=== PATIENT | female | born 1955 | race Caucasian/White ===

== ENCOUNTER → 2016-08-11 | Outpatient (CLI) | payer BC ==
[~2016-08-11] MED LIST: ALEVE 220MG220 MG PO; AMOXICILLIN/CLA1 TA1; ASPI81TA; DOXYCYCLINE MO100 MG PO; FE 50160 MG PO; MEDROL 4MG DOSPA4 MG PO; MOTRIN 600600 MG/TAB PO; MULTIPLE VITAMI1 CAP PO; NAFCILLIN IV; NORCO 325 MG-51 TAB PO; NORCO 325 MG-7.1 TAB PO; PERCOCET 325 MG1 TA2 PO; PERCOCET 325 MG1 TAB PO; PHENERGAN; PRIL40 PO; VANCOMYCIN 11 G/VIAL IV; ZESTRIL 10MG10 MG PO; ZOFRAN 4MG T4 MG/TAB PO; [UNRECOGNIZED DRUG - OTHER] IV
[2016-08-11 10:58] LABS: HEMATOCRIT 40.1 % (37.0-47.0); HEMOGLOBIN 13.8 g/dl (12.5-16.0); MEAN CELL VOLUME 84 fl (80.0-100.0); MEAN CORPUSCULAR HEMOGLOBIN 29 pg (27.0-31.0); MEAN CORPUSCULAR HGB CONC 34 g/dl (33.0-37.0); MEAN PLATELET VOLUME 10.8 fl (7.4-10.4); PLATELET COUNT 208 K/mm3 (130-400); RED BLOOD COUNT 4.75 M/mm3 (4.10-5.30); WHITE BLOOD COUNT 6.4 K/mm3 (4.8-10.8)
[2016-08-11 11:21] LABS: ADJUSTED CALCIUM 9.1 mg/dL (8.4-10.2); ALBUMIN 4.2 gm/dL (3.5-5.0); BILIRUBIN,TOTAL 0.7 mg/dL (0.0-1.0); CALCIUM 9.3 mg/dL (8.4-10.2); CREATININE, serum 0.73 mg/dL (0.52-1.25); POTASSIUM 3.8 mmol/L (3.4-5.0); TOTAL PROTEIN 7.5 gm/dL (6.4-8.2)
[2016-08-11 14:50] LABS: THYROID STIMULATING HORMONE 2.18 uIU/mL (0.465-4.680)
== END ==
LOC: COL.LAB 07:49
PROVIDERS: Family Medicine
DX: Z00.00 Encounter for general adult medical examination without abnormal findings (principal)

== ENCOUNTER → 2016-08-20 | Outpatient (CLI) | payer BC | LOC: COL.VAS 14:21 | DX: G45.9 Transient cerebral ischemic attack, unspecified (principal) ==

== ENCOUNTER → 2016-10-03 | Outpatient (CLI) | payer BC | LOC: COL.RAD 05:48 | DX: C50.412 Malignant neoplasm of upper-outer quadrant of left female breast (principal); Z90.13 Acquired absence of bilateral breasts and nipples | CPT/HCPCS: A9503; Q9967 ==

== ENCOUNTER 2017-01-01 20:13 | Emergency (ER) | payer BC ==
[~2017-01-01] VITALS: Ht 175.3 cm; Wt 77.3 kg
[2017-01-01 20:16] VITALS: TEMP 97.9
[2017-01-01] MEDS ORDERED: ZOCOR 20MG20 MG PO (20:43)
[2017-01-01] MEDS ORDERED: PRILOSEC 20MG20 MG PO (20:43)
[2017-01-01] MEDS ORDERED: COREG 6.256.25 MG/TA PO (20:44)
[2017-01-01] MEDS ORDERED: ASPIRIN 81M81 MG/TA2 PO (20:44)
[2017-01-01] MEDS ORDERED: ANTIVERT 25MG25 MG PO (20:44)
[2017-01-01 21:01] LABS: BASO % 0.3 % (0.0-2.0); EOS % 0.4 % (0-4.0); GRAN # 7.3 (1.4-6.5); GRAN % 77.5 % (42.2-75.2); HEMATOCRIT 39.3 % (37.0-47.0); HEMOGLOBIN 13.6 g/dl (12.5-16.0); LYMPH # 1.5 (1.2-3.4); LYMPH % 15.4 % (20.0-51.0); MEAN CELL VOLUME 85 fl (80.0-100.0); MEAN CORPUSCULAR HEMOGLOBIN 30 pg (27.0-31.0); MEAN CORPUSCULAR HGB CONC 35 g/dl (33.0-37.0); MEAN PLATELET VOLUME 10.1 fl (7.4-10.4); MONO # 0.6 (0.1-0.6); MONO % 6.1 % (1.7-9.3); PLATELET COUNT 178 K/mm3 (130-400); RED BLOOD COUNT 4.61 M/mm3 (4.10-5.30); WHITE BLOOD COUNT 9.4 K/mm3 (4.8-10.8)
[2017-01-01 21:11] LABS: ALBUMIN 4.2 gm/dL (3.5-5.0); CALCIUM 9.2 mg/dL (8.4-10.2); CREATININE, serum 0.9 mg/dL (0.52-1.25); POTASSIUM 3.5 mmol/L (3.4-5.0); TOTAL PROTEIN 7.6 gm/dL (6.4-8.2)
[2017-01-01 22:30] VITALS: BP 108/75; PULSE 58
== END 2017-01-01 23:08 | disposition home or self-care (01) ==
LOC: COL.ER 20:13
PROVIDERS: Emergency Medicine
DX: G43.909 Migraine, unspecified, not intractable, without status migrainosus (principal); I10 Essential (primary) hypertension; K21.9 Gastro-esophageal reflux disease without esophagitis; Z85.3 Personal history of malignant neoplasm of breast; Z90.13 Acquired absence of bilateral breasts and nipples; Z90.710 Acquired absence of both cervix and uterus; Z79.82 Long term (current) use of aspirin
CPT/HCPCS: J2765; J3010; J7030

== ENCOUNTER 2017-06-12 07:38 | Outpatient (CLI) | payer BC ==
[2017-06-12] VITALS (8 sets, daily range): BP systolic 124–171; BP diastolic 74–92; PULSE 58–68; TEMP 98.4
[~2017-06-12] VITALS: Ht 175.3 cm; Wt 93.2 kg
[~2017-06-12 07:38] MED LIST changes: +ANTIVERT 25MG25 MG PO; +ASPIRIN 81M81 MG/TA2 PO; +COREG 25MG25 MG/TAB PO; +PRILOSEC 20MG20 MG PO; +ZOCOR 20MG20 MG PO
[2017-06-12 08:20] LABS: HEMATOCRIT 39.6 % (37.0-47.0); HEMOGLOBIN 13.3 g/dl (12.5-16.0); MEAN CELL VOLUME 86 fl (80.0-100.0); MEAN CORPUSCULAR HEMOGLOBIN 29 pg (27.0-31.0); MEAN CORPUSCULAR HGB CONC 34 g/dl (33.0-37.0); MEAN PLATELET VOLUME 10.3 fl (7.4-10.4); PLATELET COUNT 191 K/mm3 (130-400); RED BLOOD COUNT 4.62 M/mm3 (4.10-5.30); REDCELL DISTRIBUTION WIDTH-CV 12.1 % (11.5-14.5)
[2017-06-12] MEDS ORDERED: LASIX 20MG TABL20 MG PO (08:34)
[2017-06-12 08:35] LABS: CALCIUM 8.9 mg/dL (8.4-10.2); CREATININE, serum 0.88 mg/dL (0.52-1.25); POTASSIUM 4.1 mmol/L (3.4-5.0)
[2017-06-12] MEDS ORDERED: CEPHALEXIN500 M1 PO (09:37)
== END 2017-06-12 12:42 | disposition home or self-care (01) ==
LOC: COL.RAD 07:38
PROVIDERS: Internal Medicine Cardiovascular Disease
DX: I08.1 Rheumatic disorders of both mitral and tricuspid valves (principal); G45.9 Transient cerebral ischemic attack, unspecified; Z85.3 Personal history of malignant neoplasm of breast; Z90.13 Acquired absence of bilateral breasts and nipples; Z87.74 Personal history of (corrected) congenital malformations of heart and circulatory system; Z98.890 Other specified postprocedural states
CPT/HCPCS: G9654; J2250; J3010

== ENCOUNTER → 2017-09-05 | Outpatient (CLI) | payer BC ==
[~2017-09-05] MED LIST changes: +CEPHALEXIN500 M1 PO; +LASIX 20MG TABL20 MG PO
== END ==
LOC: COL.RAD 14:30
DX: H61.891 Other specified disorders of right external ear (principal); M47.812 Spondylosis without myelopathy or radiculopathy, cervical region; G43.109 Migraine with aura, not intractable, without status migrainosus; R25.3 Fasciculation; Z87.898 Personal history of other specified conditions
CPT/HCPCS: A9585

== ENCOUNTER → 2017-09-09 | Outpatient (CLI) | payer BC ==
[2017-09-09 09:35] LABS: COLLECTION METHOD CLEAN CATCH
[2017-09-09 09:38] LABS: HEMATOCRIT 39.5 % (37.0-47.0); HEMOGLOBIN 13.6 g/dl (12.5-16.0); MEAN CELL VOLUME 84 fl (80.0-100.0); MEAN CORPUSCULAR HEMOGLOBIN 29 pg (27.0-31.0); MEAN CORPUSCULAR HGB CONC 34 g/dl (33.0-37.0); MEAN PLATELET VOLUME 9.7 fl (7.4-10.4); PLATELET COUNT 184 K/mm3 (130-400); RED BLOOD COUNT 4.71 M/mm3 (4.10-5.30); REDCELL DISTRIBUTION WIDTH-CV 12.4 % (11.5-14.5)
[2017-09-09 09:50] LABS: BILIRUBIN,TOTAL 1.1 mg/dL (0.0-1.0); CALCIUM 9.3 mg/dL (8.4-10.2); CHOLESTEROL RISK RATIO 3.6; CREATININE, serum 0.91 mg/dL (0.52-1.25); POTASSIUM 3.9 mmol/L (3.4-5.0); TOTAL PROTEIN 8.1 gm/dL (6.4-8.2)
[2017-09-09 09:52] LABS: MUCOUS Present /lpf; PH 5 (5-8); SQUAMOUS EPITHELIAL 0-2 /hpf; URINE APPEARANCE Hazy; URINE BACTERIA None Seen /hpf; URINE BILIRUBIN Negative (NEGATIVE); URINE BLOOD 2+ (NEGATIVE); URINE COLOR Yellow; URINE GLUCOSE Negative (NEGATIVE); URINE KETONE Negative (NEGATIVE); URINE LEUKOCYTE ESTERASE Negative (NEGATIVE); URINE NITRATE Negative (NEGATIVE); URINE PROTEIN(semi-quant) Negative (NEGATIVE); URINE UROBILINOGEN Negative (NEGATIVE)
[2017-09-09 10:20] LABS: THYROID STIMULATING HORMONE 2.22 uIU/mL (0.465-4.680)
== END ==
LOC: COL.LAB 09:11
PROVIDERS: Family Medicine
DX: Z00.00 Encounter for general adult medical examination without abnormal findings (principal)

== ENCOUNTER 2017-10-03 05:32 | Day surgery (SDC) | payer BC ==
[2017-10-03] VITALS (7 sets, daily range): BP systolic 126–141; BP diastolic 75–87; PULSE 56–80; TEMP 97.6–97.8
[~2017-10-03] VITALS: Ht 175.3 cm; Wt 93.6 kg
[2017-10-03] MEDS ORDERED: COREG 6.256.25 MG/TA PO (06:39)
== END 2017-10-03 10:35 | disposition home or self-care (01) ==
LOC: SDCO 05:32
DX: L90.5 Scar conditions and fibrosis of skin (principal); I10 Essential (primary) hypertension; K21.9 Gastro-esophageal reflux disease without esophagitis; G47.33 Obstructive sleep apnea (adult) (pediatric); Z90.13 Acquired absence of bilateral breasts and nipples; Z90.710 Acquired absence of both cervix and uterus; Z86.73 Personal history of transient ischemic attack (TIA), and cerebral infarction without residual deficits; Z85.3 Personal history of malignant neoplasm of breast
CPT/HCPCS: J0690; J1100; J2405; J2704; J3010; J7120

== ENCOUNTER → 2017-10-22 | Outpatient (CLI) | payer BC ==
[~2017-10-22] MED LIST changes: +COREG 6.256.25 MG/TA PO
== END ==
LOC: COL.RAD 10:03
DX: S33.39XA Dislocation of other parts of lumbar spine and pelvis, initial encounter (principal); M43.8X4 Other specified deforming dorsopathies, thoracic region; M43.17 Spondylolisthesis, lumbosacral region

== ENCOUNTER → 2017-10-22 | Outpatient (CLI) | payer BC | LOC: MHCPAIN 09:06 | DX: G89.29 Other chronic pain (principal); M47.812 Spondylosis without myelopathy or radiculopathy, cervical region; M43.17 Spondylolisthesis, lumbosacral region; M47.816 Spondylosis without myelopathy or radiculopathy, lumbar region; R51 Headache | CPT/HCPCS: G0463 ==

== ENCOUNTER → 2018-01-26 | Outpatient (CLI) | payer BC, MEDICAID | LOC: MHCPAIN 09:21 | DX: G89.29 Other chronic pain (principal); M47.817 Spondylosis without myelopathy or radiculopathy, lumbosacral region; M54.16 Radiculopathy, lumbar region; M53.3 Sacrococcygeal disorders, not elsewhere classified | CPT/HCPCS: G0463 ==

== ENCOUNTER → 2018-06-04 | Outpatient (CLI) | payer BC, MEDICAID | LOC: MHCPAIN 12:57 | DX: M47.817 Spondylosis without myelopathy or radiculopathy, lumbosacral region (principal); M54.16 Radiculopathy, lumbar region | CPT/HCPCS: J1040; Q9967 ==

== ENCOUNTER → 2018-06-26 | Outpatient (CLI) | payer BC, MEDICAID ==
[~2018-06-26] VITALS: Ht 175.3 cm; Wt 91.0 kg
[2018-06-26 06:11] VITALS: BP 157/95; PULSE 76
--- NOTE | 2018-06-26 06:28 | NUR ---
called [facility]uc [facility] and let them know
[2018-06-26 07:49] VITALS: BP 155/93; PULSE 72
[2018-06-26 07:53] VITALS: BP 161/94; PULSE 101
[2018-06-26 07:54] VITALS: BP 161/96; PULSE 98
[2018-06-26 07:55] VITALS: BP 159/96; PULSE 90
[2018-06-26 07:56] VITALS: BP 151/94; PULSE 89
== END ==
LOC: COL.CARD 05:52
DX: I20.9 Angina pectoris, unspecified (principal)
CPT/HCPCS: A9500

== ENCOUNTER → 2018-07-07 | Outpatient (CLI) | payer BC, MEDICAID | LOC: MHCPAIN 13:02 | DX: G89.29 Other chronic pain (principal); M47.817 Spondylosis without myelopathy or radiculopathy, lumbosacral region; M53.3 Sacrococcygeal disorders, not elsewhere classified | CPT/HCPCS: G0463 ==

== ENCOUNTER → 2018-07-24 | Outpatient (CLI) | payer MEDICAID | LOC: COL.RAD 08:15 | DX: K83.8 Other specified diseases of biliary tract (principal); Z90.49 Acquired absence of other specified parts of digestive tract ==